=== PATIENT | female | born 1985 | race Caucasian/White ===

== ENCOUNTER 2023-07-24 07:33 | Emergency (ER) | payer MEDICAID, SELFPAY ==
[2023-07-24 07:35] VITALS: BP 122/78; PULSE 85; RESP 16; TEMP 36.4; O2SAT 100; BMI 24.2
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
--- NOTE | 2023-07-24 08:10 | PC.NURSE ---
Pt give meal tray and drink, denies other needs
[2023-07-24 08:21] LABS: Bilirubin Urine NEGATIVE (NEGATIVE); Blood Urine NEGATIVE (NEGATIVE); Clarity Urine CLEAR (CLEAR); Color Urine YELLOW (YELLOW); Glucose Urine UA NEGATIVE (NEGATIVE); Ketones Urine 40 mg/dL (NEGATIVE); Leukocyte Esterase Urine NEGATIVE (NEGATIVE); Nitrite Urine NEGATIVE (NEGATIVE); Protein Urine 30 mg/dL (NEG/TRACE); Specific Gravity Urine >=1.030 (1.005-1.025); Urobilinogen Urine 0.2 EU/dL (0.2-1.0); pH Urine 5.5 (5.0-9.0)
--- NOTE | 2023-07-24 08:27 | PC.NURSE ---
urine specimen in lab for testing
[2023-07-24 08:33] LABS: Bacteria Urine TRACE #/HPF (NONE SEEN); Cannabinoid Screen Urine NEGATIVE (NEGATIVE); Cast Seen? NONE SEEN #/LPF (NONE SEEN); Cocaine Screen Urine NEGATIVE (NEGATIVE); Crystals Seen? None Seen #/HPF (None Seen); Methamphetamines Screen Urine POSITIVE (NEGATIVE); Mucus Urine MODERATE (NONE SEEN); Phencyclidine Screen Urine NEGATIVE (NEGATIVE); RBC Urine 0-2 #/HPF (0-2); Squamous Epithelial Cell Urine MANY #/LPF (NONE/RARE)
[2023-07-24 08:34] LABS: Amphetamine Screen Urine POSITIVE (NEGATIVE); Barbiturates Screen Urine NEGATIVE (NEGATIVE); Benzodiazepines Screen Urine NEGATIVE (NEGATIVE); Buprenorphine Screen Urine NEGATIVE (NEGATIVE); Methadone Screen Urine NEGATIVE (NEGATIVE); Opiate Screen Urine NEGATIVE (NEGATIVE); Oxycodone Screen Urine NEGATIVE (NEGATIVE); Tricyclic Antidepressant Urine NEGATIVE (NEGATIVE)
--- NOTE | 2023-07-24 09:24 | PC.NURSE ---
Social work returned phone call, notified of patient current situation, and is going to see patient prior to discharge, to address any possible needs/concerns.
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
--- NOTE | 2023-07-24 10:50 | SWNOTE1 ---
SW called [facility] and they do not have any availability, said to call back later. SW called trips and they are able to take her to [place] to [facility]. Trips will be here between 12:30-1:00. MIL[facility] notified ER. SW still waiting for call back from coordinator, but did speak to [facility] again and they stated someone will contact SW soon, but as long as pt is independent and self-sufficient there are no issues accepting her.
== END 2023-07-24 10:00 | disposition home or self-care (01) ==
PROVIDERS: Emergency Provider Emergency Medicine
DX: O99.321 Drug use complicating pregnancy, first trimester (principal); F15.90 Other stimulant use, unspecified, uncomplicated; Z3A.00 Weeks of gestation of pregnancy not specified; Z87.891 Personal history of nicotine dependence; Z59.00 Homelessness unspecified
CPT/HCPCS: 80307; 81001; 99283